=== PATIENT | male | born 1995 | race Caucasian/White ===

== ENCOUNTER → 2016-07-11 11:40 | Emergency (ER) | payer BC ==
[~2016-07-11 11:40] MED LIST: Dexamethasone IV* 4 MG/ML 1 ML (4 MG) ONE; Etomidate* 2 MG/ML 10 ML VIAL IV ONE; Midazolam DRIP 100 MG (1 mg/ml)* - ED ONCE IV SCH; Midazolam IV for DRIP* 10 ML ONE; Midazolam PREMIX BAG 1 MG/ML* 100 MG/100 ML BAG IV SCH; Morphine INJ* 4 MG/ML 1 ML SYRINGE IV ONE; Morphine INJ* 4 MG/ML 1 ML SYRINGE ONE; Ondansetron INJ* 2 MG/ML VIAL IV ONE; Ondansetron INJ* 2 MG/ML VIAL ONE; Propofol* 100 ML ONE; Succinylcholine* 20 MG/ML 10 ML VIAL IV ONE; Succinylcholine* 20 MG/ML 10 ML VIAL ONE
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
--- NOTE | 2016-07-11 13:22 | RAD ---
INDICATION: Status post intubation. COMPARISON: There are no prior studies available for comparison. TECHNIQUE: A portable view of the chest was obtained. FINDINGS: The patient is status post intubation. There is an endotracheal tube which projects over the midline. The catheter tip is at the level of the collicular heads. There is a nasogastric tube which projects over the midline over the lower portion of the mediastinum. This is approximately 9 cm proximal to the gastroesophageal junction. The heart is within normal limits in size. The lungs are underinflated and clear. The left costophrenic angle is cut off on the film. IMPRESSION: 1. STATUS POST INTUBATION AND FEEDING TUBE PLACEMENT. THE FEEDING TUBE PROJECTS OVER THE LOWER PORTION OF THE MEDIASTINUM IN THE MIDLINE ABOUT 9 CM PROXIMAL TO THE GASTROESOPHAGEAL JUNCTION. 2. THE LUNGS ARE CLEAR.
[2016-07-11 13:44] VITALS: BP 114/47
== END | disposition short-term general hospital (02) ==
LOC: ED 11:40
DX: T22.20XA Burn of second degree of shoulder and upper limb, except wrist and hand, unspecified site, initial encounter (principal); T20.24XA Burn of second degree of nose (septum), initial encounter; T20.16XA Burn of first degree of forehead and cheek, initial encounter; X08.8XXA Exposure to other specified smoke, fire and flames, initial encounter; W40.1XXA Explosion of explosive gases, initial encounter; Y93.9 Activity, unspecified; Y92.9 Unspecified place or not applicable; Y99.9 Unspecified external cause status
CPT/HCPCS: 31500; 71010; 94002; 94760; 99285; J0330; J1100; J2250; J2270; J2405; J2704